=== PATIENT | male | born 1965 ===

== ENCOUNTER 2024-01-02 09:00 | Inpatient (IN) | payer OTHER ==
[2024-01-02 09:41] LABS: BASOPHILS PERCENT AUTO 0.3 % (0.2-1.2); EOSINOPHILS ABSOLUTE AUTO 0.1 x10^3/uL (0.0-0.5); EOSINOPHILS PERCENT AUTO 0.7 % (0.0-4.0); HEMATOCRIT 46.3 % (40.0-52.0); HEMOGLOBIN 16.1 g/dL (14.0-18.0); LYMPHOCYTES ABSOLUTE AUTO 1.2 x10^3/uL (1.0-4.8); LYMPHOCYTES PERCENT AUTO 17.1 % (25.0-50.0); MEAN CORPUSCULAR HEMOGLOBIN 29.5 pg (26.0-32.0); MEAN CORPUSCULAR HGB CONC 34.8 g/dL (32.0-36.0); MONOCYTES ABSOLUTE AUTO 0.3 x10^3/uL (0.0-0.8); MONOCYTES PERCENT AUTO 4.2 % (2.0-11.0); NEUTROPHILS ABSOLUTE AUTO 5.4 x10^3/uL (1.8-7.7); NEUTROPHILS PERCENT AUTO 76.3 % (50.0-80.0); PLATELET COUNT,PLT 160 x10^3/uL (130-400); RED BLOOD CELL COUNT 5.45 x10^6/uL (4.5-6.0); WHITE BLOOD CELL COUNT,WBC 7.1 x10^3/uL (4.0-10.0)
[2024-01-02 09:58] LABS: PROTHROMBIN TIME 10.2 SEC (8.9-11.5); PTT,PARTIAL THROMBOPLSTIN TIME 24.9 SEC (21.9-33.8)
[2024-01-02 10:00] LABS: A/G RATIO 1.21; ALANINE AMINOTRANSFERASE,ALT 41 U/L (16-63); ALBUMIN 4.1 g/dL (3.4-5.0); ALKALINE PHOSPHATASE 93 U/L (46-116); ANION GAP 16.7 mmol/L (5-15); ASPARTATE AMNIOTRANSFERASE,AST 24 U/L (15-37); BILIRUBIN TOTAL 0.7 mg/dL (0.2-1.0); BLOOD UREA NITROGEN,BUN 15 mg/dL (7-18); CALCIUM 8.9 mg/dL (8.5-10.1); CARBON DIOXIDE,CO2 25 mmol/L (21-32); CHLORIDE,CL 106 mmol/L (98-107); CREATININE 1.2 mg/dL (0.70-1.30); ESTIMATED GFR 70 mL/min (>=60); GLUCOSE RANDOM 167 mg/dL (70-99); POTASSIUM,K 3.7 mmol/L (3.5-5.1); PROTEIN TOTAL,TP 7.5 g/dL (6.4-8.2); SODIUM,NA 144 mmol/L (136-145)
[2024-01-02] MEDS: Ondansetron 4 MG/2 ML SDV IVPUSH ONE (10:04)
[2024-01-02] MEDS: fentaNYL 100 MCG/2 ML SDV IVPUSH ONE (10:04)
[2024-01-02] MEDS: HYDROmorphone 0.5 MG/0.5 ML Syringe IVPUSH ONE (10:53)
[2024-01-02] MEDS: Orphenadrine 60 MG/2 ML Inj IM ONE (12:02)
[2024-01-02] MEDS ORDERED: Docusate Sodium 100 MG Cap PO PRN (12:43)
[2024-01-02] MEDS ORDERED: Ketorolac 30 MG/ML SDV IVPUSH PRN (12:43)
[2024-01-02] MEDS ORDERED: oxyCODONE 5 MG Tab PO PRN ×3 (12:43→13:32)
[2024-01-02] MEDS ORDERED: Ondansetron 4 MG Tab.DIS PO PRN (12:43)
[2024-01-02] MEDS ORDERED: Cyclobenzaprine 10 MG Tab PO PRN (13:04)
[2024-01-02] MEDS ORDERED: Naloxone 0.4 MG/ML SDV IVPUSH PRN (13:20)
[2024-01-02] MEDS ORDERED: hydrOXYzine HCl 25 MG Tab PO PRN (13:50)
[2024-01-02] MEDS: HYDROmorphone 0.5 MG/0.5 ML Syringe IVPUSH PRN (14:26)
[2024-01-02 17:22] LABS: AMPHETAMINES SCREEN, URINE NEGATIVE (NEGATIVE); BARBITURATE SCREEN,URINE NEGATIVE (NEGATIVE); BENZODIAZEPINES SCREEN,URINE NEGATIVE (NEGATIVE); BUPRENORPHINE SCREEN,URINE NEGATIVE (NEGATIVE); COCAINE METABOLITES,URINE NEGATIVE (NEGATIVE); METHADONE SCREEN, URINE NEGATIVE (NEGATIVE); METHAMPHETAMINE SCREEN, URINE NEGATIVE (NEGATIVE); OXYCODONE SCREEN,URINE NEGATIVE (NEGATIVE); PCP SCREEN,URINE NEGATIVE (NEGATIVE); THC SCREEN,URINE 50 NG/ML NEGATIVE (NEGATIVE)
[2024-01-03] MEDS ORDERED: Enoxaparin 30 MG/0.3 ML Syringe SUBCUT SCH (09:00)
[2024-01-03] MEDS ORDERED: Enoxaparin 40 MG/0.4 ML Syringe SUBCUT SCH (09:00)
== END 2024-01-02 18:23 | disposition short-term general hospital (02) | DRG 184 ==
LOC: VM.ED 09:00 → VM.MS 12:11
PROVIDERS: ADMIT Nurse Practitioner Family; ATTEND Nurse Practitioner Family
DX: S22.42XA Multiple fractures of ribs, left side, initial encounter for closed fracture (principal); J90 Pleural effusion, not elsewhere classified; S27.321A Contusion of lung, unilateral, initial encounter; S42.022A Displaced fracture of shaft of left clavicle, initial encounter for closed fracture; K21.9 Gastro-esophageal reflux disease without esophagitis; E66.9 Obesity, unspecified; Z68.37 Body mass index [BMI] 37.0-37.9, adult; V69.9XXA Occupant (driver) (passenger) of heavy transport vehicle injured in unspecified traffic accident, initial encounter; Z88.8 Allergy status to other drugs, medicaments and biological substances
CPT/HCPCS: 36415; 71045; 71250; 73000-LT; 73030-LT; 80053; 80305-QW; 80307; 82947; 85018; 85025; 85610; 85730; 94760; 97161-GP; 97165-GO; 99284; J1171; J2360; J2405; J3010